=== PATIENT | male | born 1965 | race Caucasian/White ===

== ENCOUNTER 2021-01-21 06:19 | Outpatient (REF) | payer OTHER, SELFPAY ==
[2021-01-21 11:35] LABS: Appearance Urine CLEAR; Color Urine YELLOW; Glucose Urine UA NEG (NEG); Leukocyte Esterase Urine NEG (NEG); Nitrite Urine NEG (NEG); Urine Blood NEG (NEG); Urine Ketones NEG (NEG); Urine Protein NEG (NEG-TRACE)
[2021-01-21 12:04] LABS: Alanine Aminotransferase 17 U/L (0-40); Albumin Level 4.6 g/dL (3.5-5.0); Alkaline Phosphatase 86 U/L (39-117); Anion Gap 11 (12-20); Aspartate Amino Transferase 16 U/L (5-37); Blood Urea Nitrogen 14 mg/dL (9-16); Calcium 9.8 mg/dL (8.4-10.2); Carbon Dioxide 29 mmol/L (22-29); Chloride 105 mmol/L (96-108); Cholesterol 219 mg/dL; Estimated Glomerular Filt Rate > 60; Glucose Fasting 100 mg/dL (60-99); HDL Cholesterol 48 mg/dL; LDL Cholesterol Calculated 159 mg/dl; Potassium 4.6 mmol/L (3.3-5.1); Sodium 140 mmol/L (135-145); Total Protein 7.2 g/dL (6.5-8.0); Triglycerides 61 mg/dL
[2021-01-21 12:27] LABS: Prostate Specific Antigen Scr 0.74 ng/mL (<0.05-4.0); TSH reflex Free T4 1.43 uIU/mL (0.32-4.0)
== END 2021-01-21 06:20 | disposition home or self-care (01) ==
LOC: HO.HMGCLDS 06:19
PROVIDERS: PCP Nurse Practitioner Family; Visit Provider Nurse Practitioner Family
DX: Z00.00 Encounter for general adult medical examination without abnormal findings (principal); Z12.5 Encounter for screening for malignant neoplasm of prostate
CPT/HCPCS: 36415; 80053; 80061; 81003; 84153; 84443

== ENCOUNTER 2021-01-22 09:34 | Outpatient (REF) | payer OTHER, SELFPAY ==
--- NOTE | ~2021-01-22 | XR_ITS ---
EXAMINATION: XR SHOULDER, LEFT CLINICAL INFORMATION: Left shoulder pain. COMPARISON: None TECHNIQUE: Four views of the left shoulder. FINDINGS: The bony alignment is intact. The cortices are intact. Possible subtle radiolucency is noted within the proximal metaphysis of the left humerus with overlying intact cortex. There is no evidence of any endosteal scalloping or periosteal reaction seen. Overlying soft tissues intact. Mild osteoarthrosis of the left acromioclavicular joint. The glenohumeral alignment is intact. XR/XR shoulder LT min 2V IMPRESSION: 1. Possible subtle radiolucency within the proximal left humerus with intact overlying cortex. Alternative imaging modality including CT scan or MRI may be considered for further clarification. 2. Mild osteoarthrosis of the left acromioclavicular joint.
== END 2021-01-22 09:35 | disposition home or self-care (01) ==
LOC: HO.HMGCX 09:34
PROVIDERS: PCP Nurse Practitioner Family; Visit Provider Nurse Practitioner Family
DX: M25.512 Pain in left shoulder (principal); G89.29 Other chronic pain
CPT/HCPCS: 73030

== ENCOUNTER 2021-02-16 11:01 | Outpatient (REF) | payer OTHER, SELFPAY ==
--- NOTE | ~2021-02-16 | MR_ITS ---
EXAMINATION: MR SHOULDER WITHOUT AND WITH CONTRAST, LEFT CLINICAL INFORMATION: Left shoulder pain and weakness. Decreased range of motion. COMPARISON: Radiograph dated 01/22/2021 TECHNIQUE: MRI of the shoulder was performed before and after the intravenous administration of 5 mL Gadavist on a high-field scanner. FINDINGS: ROTATOR CUFF: Intact. No muscle atrophy or fatty infiltration. BICEPS: Normal. CORACOACROMIAL ARCH: The undersurface of the acromion is flat with no subacromial spur. Mild acromioclavicular osteoarthritis. LABRUM/CAPSULE: Normal. GLENOHUMERAL JOINT/MARROW: Small glenoid osteophytes. The articular cartilage appears well preserved. No fracture or malalignment. Bone marrow signal is normal. There is a paucity of trabecular bone in the proximal humeral metadiaphyseal region which likely corresponds to the suspected radiolucency on the prior radiograph. This variation in the trabecular bone is within the range of normal and produced a pseudolesion radiographically. MR/MR shoulder LT wo/w con IMPRESSION: 1. Mild acromioclavicular and minimal glenohumeral osteoarthritis. 2. No appreciable rotator cuff abnormalities. 3. Normal proximal humerus. No lesions. Radiographic abnormality corresponds to normal variation in the trabecular bone.
== END 2021-02-16 11:02 | disposition home or self-care (01) ==
LOC: HO.MRI 11:01
PROVIDERS: Visit Provider Nurse Practitioner Family
DX: M89.8X9 Other specified disorders of bone, unspecified site (principal); R93.6 Abnormal findings on diagnostic imaging of limbs
CPT/HCPCS: 73223; A9585

== ENCOUNTER 2021-07-20 10:03 | Outpatient (REF) | payer OTHER, SELFPAY ==
[2021-07-20 10:29] LABS: COVID-19 Test Negative (Negative); IDNOW Serial# 16C4AD1C
== END 2021-07-20 10:04 | disposition home or self-care (01) ==
LOC: HO.LAB 10:03
PROVIDERS: PCP Nurse Practitioner Family; Visit Provider Internal Medicine
DX: Z20.822 Contact with and (suspected) exposure to COVID-19 (principal)
CPT/HCPCS: 87635; C9803

== ENCOUNTER 2022-01-17 06:05 | Outpatient (REF) | payer OTHER, SELFPAY ==
[2022-01-17 11:49] LABS: Alanine Aminotransferase 18 U/L (0-40); Albumin Level 4.4 g/dL (3.5-5.0); Alkaline Phosphatase 83 U/L (39-117); Anion Gap 14 (12-20); Aspartate Amino Transferase 17 U/L (5-37); Bilirubin Total 0.6 mg/dL (0.0-1.0); Blood Urea Nitrogen 14 mg/dL (9-16); Calcium 9.4 mg/dL (8.4-10.2); Carbon Dioxide 27 mmol/L (22-29); Chloride 106 mmol/L (96-108); Cholesterol 169 mg/dL; Estimated Glomerular Filt Rate > 60; Glucose Fasting 99 mg/dL (60-99); HDL Cholesterol 47 mg/dL; LDL Cholesterol Calculated 110 mg/dl; Potassium 4.5 mmol/L (3.3-5.1); Sodium 142 mmol/L (135-145); Total Protein 6.9 g/dL (6.5-8.0); Triglycerides 60 mg/dL
== END 2022-01-17 06:06 | disposition home or self-care (01) ==
LOC: HO.HMGCLDS 06:05
PROVIDERS: PCP Nurse Practitioner Family; Visit Provider Nurse Practitioner Family
DX: E78.5 Hyperlipidemia, unspecified (principal)
CPT/HCPCS: 36415; 80053; 80061

== ENCOUNTER 2022-01-23 11:16 | Outpatient (REF) | payer OTHER, SELFPAY ==
[2022-01-23 13:56] LABS: MANUAL DIFF FLAG NO
[2022-01-23 14:04] LABS: Appearance Urine Clear; Color Urine Yellow; Glucose Urine UA Negative (Negative); Leukocyte Esterase Urine Negative (Negative); Nitrite Urine Negative (Negative); PH 6.5 (5.0-9.0); Urine Blood Negative (Negative); Urine Ketones Negative (Negative); Urine Protein Negative (Neg-Trace)
[2022-01-23 14:04] LABS: Basophils Absolute Auto 0.1 X10*3/uL (0.0-0.2); Basophils Percent Auto 0.7 % (0-2); Eosinophils Absolute Auto 0.1 X10*3/uL (0.0-0.4); Eosinophils Percent Auto 1.5 % (0-4); Hematocrit 43.2 % (42.0-52.0); Hemoglobin 14.3 g/dl (14.0-18.0); Imm Gran Abs Auto 0.02 X10*3/uL (0.00-0.03); Imm Gran Pct Auto 0.3 % (0.0-0.4); Lymphocytes Absolute Auto 1.8 X10*3/uL (1.2-4.9); Mean Corpuscular HGB Conc 33.1 g/dl (31.0-36.0); Mean Corpuscular Hemoglobin 29.4 pg (27.0-33.0); Mean Corpuscular Volume 88.7 fL (80.0-98.0); Mean Platelet Volume 9.1 fL (9.4-12.4); Monocytes Absolute Auto 0.4 X10*3/uL (0.1-1.2); Monocytes Percent Auto 5.6 % (2-11); Neutrophils Percent Auto 67.9 % (45-73); Platelet Count 320 X10*3/uL (160-400); Red Blood Count 4.87 X10*6/uL (4.60-5.80); Red Cell Distribution Width 12.4 % (11.0-16.0); White Blood Count 7.3 X10*3/uL (4.8-10.8)
[2022-01-23 14:34] LABS: Prostate Specific Antigen Scr 0.59 ng/mL (<0.05-4.0); TSH reflex Free T4 0.65 uIU/mL (0.32-4.0)
== END 2022-01-23 11:17 | disposition home or self-care (01) ==
LOC: HO.HMGCLDS 11:16
PROVIDERS: PCP Nurse Practitioner Family; Visit Provider Nurse Practitioner Family
DX: Z00.00 Encounter for general adult medical examination without abnormal findings (principal); Z12.5 Encounter for screening for malignant neoplasm of prostate
CPT/HCPCS: 36415; 81003; 84153; 84443; 85025

== ENCOUNTER → 2022-03-16 09:26 | Outpatient (BNVA) | payer OTHER, SELFPAY | PROVIDERS: PCP Nurse Practitioner Family; Referring Provider Nurse Practitioner Family; Visit Provider Physician Assistant | DX: Z01.818 Encounter for other preprocedural examination (principal) | CPT/HCPCS: 99202 ==

== ENCOUNTER 2022-05-02 10:00 | Outpatient (RCR) | payer OTHER, SELFPAY ==
--- NOTE | 2022-02-01 11:47 | MHC.PT.EP ---
[facility] [place] [facility] [place] [facility] [place] [facility] [address] [phone] F: [phone] F: [phone] F: [phone] F: [phone] Physical Therapy Plan of Care Date of Evaluation: Date of Surgery: n/a Diagnosis: L shoulder pain Assessment: Patient is a 56 year old R handed male who presents with s/s consistent with L shoulder pain. 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 Patient past medical history is unremarkable. Current impairments include pain, posture, ROM, strength, activity tolerance and functional mobility. Functional limitations include decreased ability to reach, lift, carry, push, pull. Patient is motivated with good rehab potential. Skilled PT will address impairments and functional limitations in order to achieve goals. Frequency and Duration: The patient will be seen 2x/week for 5 weeks Short Term Goals: I with HEP - 2 weeks Full pain free AROM - 3 weeks symmetrical scap position - 3 weeks Assisted Goals: SPADI 20/130 or better - 5 weeks Strength 4+/5 grossly - 5 weeks TTP absent, pain free ADLs - 5 weeks Treatment Plan: Modalities to reduce pain, spasms and effusion. Manual therapy to restore motion and function. Therapeutic exercise to improve strength and flexibility. Neuromuscular re-education for posture and balance. Therapeutic activities to return to functional activities of daily living. Electronically signed by: Eric Flores, PT Please sign and return to therapist. Thank you for your referral.
--- NOTE | 2022-06-16 08:26 | MHC.PT.DC ---
[facility] [place] Office [place] Office [address] [phone] F: [phone] F: [phone] F: [phone] F: [phone] Physical Therapy Discharge Report Diagnosis: L shoulder pain Date of Surgery: n/a Date of Evaluation: 02/01/22 Date of Discharge: 04/27/22 Treatments to Date: 10 Cancellations to Date: No Shows to Date: Discharge Status: Improved Function Independent with HEP Discharge Summary: 05/02/22: SPADI 12/130. AROM WNL and pain free. Still with slight scapular asymmetries. Strength 4+/5 grossly. TTP absent and pain free with aDLs. Updated HEP issued and patient is appropriate for d/c to HEP at this time. 04/18/22: Pt has been feeling better overall and is compliant with HEP. we will plan 1 more visit then d/c to HEP. 03/27/22: pt had minor setback lifting wood last week. no adverse reactions since. has been back to baseline the last few days. able to resume strengthening with good carryover and progressed weights. 03/15; Pt c/o pain and pinching with some exs, DC and modified program to pt nely. Pt felt relief with sustained inf glide with imporved pain free ROM. 03/08; Pt had reduced pinching after manual RX. He only c/o pain in L shoulder at end range shoulder flexion with slight impingement. Otherwise he has good form and no pain with strengthening exercises. 03/08; Pt had reduced pinching after mobs and STM. Electronically signed by: Eric Flores PT Please sign and return to therapist. Thank you for your referral.
== END 2022-06-16 08:27 | disposition home or self-care (01) ==
LOC: HO.PTCHIC 10:00
PROVIDERS: PCP Nurse Practitioner Family; Visit Provider Nurse Practitioner Family
DX: R93.6 Abnormal findings on diagnostic imaging of limbs (principal)
CPT/HCPCS: 97110; 97140; 97161; 97530

== ENCOUNTER → 2022-09-08 10:40 | Outpatient (REF) | payer OTHER, SELFPAY ==
--- NOTE | 2022-09-08 10:42 | CA_ITS ---
Transthoracic Echocardiogram Patient (Last, First, Middle): Herminio Lozano, Gender: Male Date of : 1965 Age: 57 Procedure Date: 09/08/2022 Procedure Type: Transthoracic Echocardiogram Location: OP Height: 170.18 cm Weight: 52.16 kg BSA: 1.60 m2 Heart Rate: 60 bpm BP: 110 / 70 mmHg Mortgage Banker: SB Referring MD: Roc Harper [facility] Inside H[employer]icultural Specialty Grower: John Mccormick MD Symptoms: R01.1 - Cardiac murmur, unspecified Study Quality: Good ECG Rhythm: Sinus Conclusions: - Normal study Findings Left Ventricle Normal left ventricular size, thickness, and systolic function. The visually estimated ejection fraction is between 65-70%. Diastolic function is normal for age. Peak GLS is -19.6%, within normal limits. Right Ventricle Normal right ventricular cavity size and systolic function. Atria Both atria are normal in size. There is no evidence of interatrial shunt. Aortic Valve Normal aortic valve structure and function. There is no aortic valve stenosis. There is no aortic valve regurgitation. Mitral Valve Normal mitral valve structure and function. There is trace mitral valve regurgitation. There is no mitral valve stenosis. Pulmonic Valve The pulmonic valve is likely normal. Tricuspid Valve Normal tricuspid valve structure. There is trace tricuspid valve regurgitation. The right ventricular systolic pressure is normal. The right ventricular systolic pressure is 14 mmHg. Normal right atrial pressure. There is no evidence of pulmonary hypertension. Great Vessels All visible segments of the aorta are normal in size. The pulmonary artery was not well visualized. Venous The inferior vena cava is normal in size and collapses greater than 50% with inspiration. Pericardium/Pleural There is no evidence of pericardial effusion. Prior Study Comparison No prior study available for comparison. Measurements 2D Linear Measurements IVSd: 0.52 0.6-0.9/0.6-1.0 cm LVIDd: 4.44 3.9-5.3/4.2-5.9 cm LVIDd Index: 2.78 2.4-3.2/2.2-3.1 cm/m2 LVIDs: 3.26 2.0-3.6 cm LVPWd: 0.47 0.7-1.1 cm LA Diam: 2.90 2.7-3.8/3.0-4.0 cm LAIDs Index: 1.81 1.5-2.3 cm/m2 LV Mass: 74.93 67-162/88-224 g LV Mass Index: 46.83 43-95/49-115 g/m2 LVOT Diam: 2.10 3.0+(-)1.3 cm 2D Systolic Function EF 4C: 64.30 >55% EF 2C: 70.30 >55% EF BiP: 67.70 >55% Mitral Valve MV Pk E: 0.88 MV PK A: 0.41 MV Decel Time: 276.00 E/A: 2.20 E'Lateral: 14.70 E'Medial: 8.81 E/E' Med: 10.00 E/E' Lat: 6.00 PHT: 81.00 MVA PHT: 2.72 Decel [place]: 3.19 Aortic Valve AoV Pk Jordy: 1.52 AoV Mn Jordy: 0.97 AoV VTI: 0.32 AoV Pk Grad: 9.00 Aov Mn Grad: 5.00 ARIEL Cont.VTI: 2.31 LVOT LVOT Pk Jordy: 1.17 LVOT Mn Jordy: 0.71 LVOT VTI: 0.21 LVOT Pk Grad: 5.00 LVOT Mn Grad: 3.00 LVOT Diam: 2.10 LVOT Area: 3.46 Diastolic Function MV Pk E: 0.88 MV Pk A: 0.41 E/A: 2.20 E'Medial: 8.81 E/E' Med: 10.00 E' Laterial: 14.70 E/E' Lat: 6.00 Right Ventricle TAPSE (mm): 20.30 TVS' Jordy: 16.00 Tricuspid Valve TR Pk Jordy: 1.67 TR Pk Grad: 11.00 RA Press: 3.00 RVSP: 14.00 Great Vessels Aorta Sinus of Valsalva: 2.50 2.0-3.5 cm Ao Asc: 2.90 2.1-3.4 cm Pulmonary Veins Pulm Vein S/D 0.90 Pulmonary Valve PV Pk Jordy: 1.31 PV Min Jordy: 0.87 Peak PV Grad: 7.00 PV Mn Grad: 4.00 Updated in Other Vendor System with Status of Final John Mccormick MD electronically signed on 09/09/2022 10:46:18 AM with status of Final
== END ==
LOC: HO.CARD 10:40
PROVIDERS: PCP Nurse Practitioner Family; Visit Provider Nurse Practitioner Family
DX: R01.1 Cardiac murmur, unspecified (principal)
CPT/HCPCS: 93306; 93356

== ENCOUNTER → 2024-05-14 08:57 | Outpatient (BNVA) | payer OTHER, SELFPAY | PROVIDERS: PCP Nurse Practitioner Family; Visit Provider Nurse Practitioner Family | DX: Z00.00 Encounter for general adult medical examination without abnormal findings (principal) | CPT/HCPCS: 96127; 99396 ==

== ENCOUNTER 2024-05-28 09:43 | Outpatient (REF) | payer OTHER, SELFPAY ==
--- OUTSIDE RECORDS SUMMARY | 2024-05-28 10:04 | XMS_ITS | Clinical Summary ---
Author Organization [facility] Address [address] [place] [address] Care Team Providers Care Guinea Pig Breeder Name Role Phone Olga Don MD Primary Care Provider [phone] Allergies No known active allergies Medications Medication Sig Dispensed Refills Start Date End Date Status sulindac (CLINORIL) 150 MG tablet Take 1 Tab by mouth 2 times daily as needed for Pain. 60 Tab 0 07/03/2017 Active Active Problems Problem Noted Date Chronic left shoulder pain 06/06/2016 Immunizations Name Administration Dates Next Due Qwigguhzb-Y-Ncurg-Positive + 12/29/2013 Nbcybca-Qzurv-Bspcwryr + 12/29/2013 Kkmxz-Jwkcu-Qngcnjxf + 12/29/2013 Nlknqeb-Ucycf-Yfvjehjw + 12/29/2013 Varicella Titre-Positive + 12/29/2013 Family History Medical History Relation Name Comments CA Breast Aunt 2 maternal, older (around 65 or so) CA Breast Aunt 3 maternal, older (around 65 or so) CA Lung Uncle 2 smoker CA Colon Negative Hx CA Prostate Negative Hx Relation Name Status Comments Aunt 1 Aunt 2 Aunt 3 Uncle 1 Uncle 2 Social History Tobacco Use Types Packs/Day Years Used Date Smoking Tobacco: Never Smokeless Tobacco: Never Tobacco Cessation:Counseling Given: No Alcohol Use Standard Drinks/Week Comments No 0 (1 standard drink = 0.6 oz pur e alcohol) rarely Sex Assigned at Date Recorded Not on file Last Filed Vital Signs Vital Sign Reading Time Taken Comments Blood Pressure 122/64 07/03/2017 2:46 PM EDT Pulse 72 07/03/2017 2:46 PM EDT Temperature 36.8 ??C (98.3 ??F) 07/03/2017 2:46 PM ED T Respiratory Rate 16 07/03/2017 2:46 PM EDT Oxygen Saturation - - Inhaled Oxygen Concentration - - Weight 52.2 kg (115 lb) 07/03/2017 2:46 PM EDT Height 165.1 cm (5' 5 ) 07/03/2017 2:46 PM EDT Body Mass Index 19.14 07/03/2017 2:46 PM EDT Plan of Treatment Health Maintenance Due Date Last Done Comments Covid-19 Vaccine (#1) 1965 SHINGLES VACCINE (1 of 2) 2013 BASELINE HEALTH EXAM 40-64 06/06/2018 06/06/2016 CHOLESTEROL SCREENING 12/29/2018 12/29/2013 (External Completion) INFLUENZA (#1) 2023 07/03/2017 (Refused), 06/06/2016 (Refused) COLON CANCER SCREENING 03/30/2024 4, 03/30/2014 (External Completion) DTAP/TDAP/TD (2 - Td or Tdap) 06/06/2026 06/06/2016 (Refused) PNEUMOCOCCAL VACCINE FOR HIGH RISK PATIENTS (#1) 2028 HEPATITIS C SCREENING Addressed 12/29/2013 (External Completion) Overridden with the intention of not completing the topic Care Teams Guinea Pig Breeder Relationship Specialty Start Date End Date Olga Don MD [address] [place] [id number] PCP - General Internal Medicine 10/18/20
[2024-05-28 13:11] LABS: Appearance Urine Clear; Color Urine Yellow; Glucose Urine UA Negative (Negative); Leukocyte Esterase Urine Negative (Negative); Nitrite Urine Negative (Negative); Specific Gravity - Urine >= 1.030 (1.005-1.025); Urine Blood Negative (Negative); Urine Ketones Negative (Negative); Urine Protein Negative (Neg-Trace)
[2024-05-28 13:19] LABS: MANUAL DIFF FLAG NO
[2024-05-28 13:35] LABS: Basophils Percent Auto 0.6 % (0-2); Eosinophils Absolute Auto 0.2 X10*3/uL (0.0-0.4); Eosinophils Percent Auto 3.6 % (0-4); Hematocrit 43.7 % (42.0-52.0); Hemoglobin 14.4 g/dl (14.0-18.0); Imm Gran Abs Auto 0.02 X10*3/uL (0.00-0.03); Imm Gran Pct Auto 0.4 % (0.0-0.4); Lymphocytes Percent Auto 38.3 % (20-40); Mean Corpuscular Hemoglobin 29.6 pg (27.0-33.0); Mean Corpuscular Volume 89.7 fL (80.0-98.0); Mean Platelet Volume 9.2 fL (9.4-12.4); Monocytes Absolute Auto 0.4 X10*3/uL (0.1-1.2); Monocytes Percent Auto 7.3 % (2-11); Neutrophils Absolute Auto 2.6 x10*3/uL (2.0-8.3); Neutrophils Percent Auto 49.8 % (45-73); Platelet Count 299 X10*3/uL (160-400); Red Blood Count 4.87 X10*6/uL (4.60-5.80); Red Cell Distribution Width 12.5 % (11.0-16.0); White Blood Count 5.2 X10*3/uL (4.8-10.8)
[2024-05-28 14:10] LABS: Alanine Aminotransferase 42 U/L (0-40); Albumin Level 4.2 g/dL (3.5-5.0); Alkaline Phosphatase 88 U/L (39-117); Anion Gap 10 (12-20); Aspartate Amino Transferase 33 U/L (5-37); Bilirubin Total 0.8 mg/dL (0.0-1.0); Blood Urea Nitrogen 16 mg/dL (9-16); Calcium 9.5 mg/dL (8.4-10.2); Carbon Dioxide 27 mmol/L (22-29); Chloride 108 mmol/L (96-108); Cholesterol 238 mg/dL (<200); Estimated Glomerular Filt Rate > 60; Glucose Fasting 92 mg/dL (60-99); HDL Cholesterol 47 mg/dL (>40); LDL Cholesterol Calculated 172 mg/dL (<100); Potassium 4.2 mmol/L (3.3-5.1); Sodium 141 mmol/L (135-145); TSH reflex Free T4 1.01 uIU/mL (0.32-4.0); Total Protein 7.2 g/dL (6.5-8.0); Triglycerides 96 mg/dL (<150)
[2024-05-28 14:13] LABS: Prostate Specific Antigen Scr 0.92 ng/mL (<0.05-4.0)
== END 2024-05-28 09:44 | disposition home or self-care (01) ==
LOC: HO.HMGCLDS 09:43
PROVIDERS: PCP Nurse Practitioner Family; Visit Provider Nurse Practitioner Family
DX: Z00.00 Encounter for general adult medical examination without abnormal findings (principal); Z12.5 Encounter for screening for malignant neoplasm of prostate
CPT/HCPCS: 36415; 80053; 80061; 81003; 84153; 84443; 85025

== ENCOUNTER 2024-06-25 09:39 | Outpatient (REF) | payer OTHER, SELFPAY ==
--- NOTE | ~2024-06-25 | US_ITS ---
EXAMINATION: US ABDOMEN HISTORY: R74.8 - Abnormal levels of other serum enzymes TECHNIQUE: Real-time grayscale ultrasound imaging of the abdomen was performed and images were reviewed. COMPARISON: There are no prior studies for comparison. FINDINGS: Liver: The right lobe of the liver measures 13.1 cm in size. The left lobe of the liver measures 8.2 cm in size. The liver demonstrates normal homogeneous echotexture. There is a 1.4 x 0.6 x 1.4 cm cyst in the right lobe. No intrahepatic biliary ductal dilatation is identified. There is normal hepatopedal flow in the portal vein. Gallbladder and biliary tree: The gallbladder is unremarkable, without evidence of calculi, wall thickening, or pericholecystic fluid. There is no sonographic Martines sign. The common bile duct is normal in caliber measuring 4 mm. Kidneys: The right kidney measures 9.8 cm in length and is unremarkable. The left kidney measures 10.0 cm in length and demonstrates a 6 x 4 x 5 mm upper pole cyst and a 1.7 x 1.8 x 1.5 cm lower pole cyst demonstrating calcifications. There is no hydronephrosis. Pancreas: The pancreatic head, neck, and body are unremarkable. The pancreatic tail is obscured by bowel gas. Spleen: The spleen is normal in size and contour, measuring 9.0 cm in length. Abdominal aorta and inferior vena cava: The visualized portions of the abdominal aorta and inferior vena cava are normal in caliber. There is no free fluid in the abdomen. US/US abdomen complete IMPRESSION: 1.7 x 1.8 x 1.5 cm left renal cyst demonstrating calcifications. Follow-up is recommended. Additional hepatic and left renal cysts as described. Electronically signed by: Emory Donaldson MD 06/25/2024 11:03 AM EDT
== END 2024-06-25 09:40 | disposition home or self-care (01) ==
LOC: HO.US 09:39
PROVIDERS: PCP Nurse Practitioner Family; Visit Provider Nurse Practitioner Family
DX: R74.8 Abnormal levels of other serum enzymes (principal)
CPT/HCPCS: 76700

== ENCOUNTER → 2024-06-25 09:40 | Outpatient (BNV) | payer OTHER, SELFPAY | PROVIDERS: PCP Nurse Practitioner Family; Visit Provider Radiology Diagnostic Radiology | DX: R74.8 Abnormal levels of other serum enzymes (principal); N28.1 Cyst of kidney, acquired | CPT/HCPCS: 76700 ==

== ENCOUNTER 2024-08-21 07:50 | Outpatient (REF) | payer OTHER, SELFPAY ==
[2024-08-21 17:03] LABS: Urine Cytology See Pathology rpt
== END 2024-08-21 07:51 | disposition home or self-care (01) ==
LOC: HO.LAB 07:50
PROVIDERS: PCP Nurse Practitioner Family; Visit Provider Nurse Practitioner Family
DX: N28.1 Cyst of kidney, acquired (principal); R31.29 Other microscopic hematuria
CPT/HCPCS: 81003; 88112; 99202

== ENCOUNTER 2024-08-21 07:50 | Outpatient (AMB) | payer OTHER, SELFPAY ==
--- NOTE | 2024-08-21 07:50 | A.OFFVIS_ITS ---
Intake Visit Reasons: Renal cyst Intake Note: Pt presents to the office today for renal cyst. Urology Meds:none Blood thinners:none Allergies No Known Allergies Allergy (Verified 08/21/24 08:21) Medication List - Last Reconciled 08/21/24 by EMILY Wu-EAMON bisacodyl (Dulcolax (bisacodyl)) 10 mg (2 x 5 mg) PO ONCE 1 day polyethylene glycol 3350 (Miralax) 238 grams PO ONCE 1 day HPI Comments Details: Herminio is a very pleasant 59-year-old male patient of Dr. Morris. He presents to the office today as a new patient for left renal cysts. In discussion with the patient today he reports having had a recent abdominal ultrasound due to abnormal blood work with his PCP at which time abnormality was noted to the left kidney and recommendations were made for urology referral for further assessment evaluation. Renal imaging results were reviewed with the patient today 07/01 1.7 x 1.8 x 1.5 cm left renal cyst demonstrating calcifications. Follow-up is recommended. Bilateral kidneys with no calculi or hydronephrosis. When asked he denies any bothersome urinary issues. He denies urinary urgency, urinary frequency, incontinence, nocturia, hematuria, dysuria, foul smelling urine, changes to urinary stream, flank pain, fever, and or chills. He is happy with his current voiding parameters. He does report intermittent episodes of left-sided upper to mid abdominal discomfort. No CVA tenderness noted bilaterally on exam today. We discussed obtaining MRI renal mass protocol for further assessment evaluation. In office urinalysis results reviewed with the patient today. Microscopic hematuria noted otherwise within normal limits. When asked he denies any known workplace chemical exposure and or nicotine dependence. In review of patient's chart it appears PSA 06/03 0.9. We discussed potential causes of renal cysts as well as further interventions and risks and benefits of these interventions. We also discussed potential causes of microscopic hematuria. All questions were answered. He otherwise offers no other issues or concerns at this time. Plan I will obtain a MRI renal mass protocol to further evaluate the renal cyst identified on ultrasound. Advanced imaging will provide additional details necessary to determine the cyst's characteristics. If confirmatory imaging march pports a benign renal cyst we discussed surveillance monitoring. I discussed potential risks and necessary ongoing surveillance which could include intervention only if indicated by progression or new symptoms. Patient was informed and verbally consented to the use of an ambient scribe for clinic note documentation during this visit. Discussion Notes During the visit, I reviewed with the patient the ultrasound findings indicating a renal cyst on the left kidney, noting that while typically benign, further imaging is required for confirmation. I explained the benefits of a CT scan or MRI to provide a more definitive assessment. I detailed the plan for obtaining insurance authorization and scheduling the imaging procedure. Additionally, I informed the patient of red flag symptoms that would warrant immediate attention, such as hematuria or changes in urinary habits. The patient was provided with reassurance regarding the benign nature of most renal cysts and the approach for monitoring their evolution. Consent was obtained for the proposed diagnostic approach with a clear understanding of the risks, benefits, and alternatives discussed. PFSH Surgical History Hx of colonoscopy Family History Father Hypertension Mother No problems noted. 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 Cognitive needs: No Hearing needs: No Vision needs: No Review of Systems Const All systems reviewed & are unremarkable except as noted in HPI and below Physical Exam Const General: cooperative, comfortable, no acute distress, well developed, alert and awake Orientation/consciousness: patient oriented x3 HEENT Head: Yes normal to inspection, Yes normocephalic and Yes atraumatic Ears: hearing grossly normal bilaterally Eyes General: appearance normal, both eyes and all related structures Neck Neck: Yes normal visual inspection and Yes trachea midline Chest Chest palpation & inspection: normal inspection of the chest Resp Effort & Inspection: normal respiratory effort and able to speak in complete sentences Cardio Rate: regular rate GI Inspection: Yes normal to inspection General: Yes no CVA tenderness Back/Spine/Pelvis Back: no CVA tenderness Skin General skin exam: no rashes or lesions noted Neuro General: patient oriented x3 Extrem General: Yes normal to inspection Psych Appearance: grossly normal and well kempt Mental Status: mental status grossly normal Speech and movement: Normal speech and movement present and Clear speech present Affect: normal affect Attitude: cooperative Thought process: Normal thought process present Thought content: Normal thought content present Insight: Fair insight present (Psych) Judgement: Fair judgement present (Psych) Results AMB Urinalysis, Automated UA Leukoctes 0 Sarahi/uL Last Edit by Lyudmila Tavera CMA on 08/21/24 07:57 UA Nitrite Negative Last Edit by Lyudmila Tavera CMA on 08/21/24 07:57 UA Urobilinogen 0.2 mg/dL Last Edit by Lyudmila Tavear CMA on 08/21/24 07:57 UA Protein 0 mg/dL Last Edit by Lyudmila Tavera CMA on 08/21/24 07:57 UA pH 6.0 Last Edit by Lyudmila Tavera CMA on 08/21/24 07:57 UA Blood 10 Kiel/uL Last Edit by Lyudmila Tavera CMA on 08/21/24 07:57 UA Specific Fabius 1.020 Last Edit by Lyudmila Tavera CMA on 08/21/24 07:57 UA Ketone Negative Last Edit by Lyudmila Tavera CMA on 08/21/24 07:57 UA Bilirubin 0 mg/dL Last Edit by Lyudmila Tavera CMA on 08/21/24 07:57 UA Glucose 0 mg/dL Last Edit by Lyudmila Tavera CMA on 08/21/24 07:57 Results Reviewed Results Reviewed: Laboratory Last Values Urine pH (Auto) 6.0 08/21/24 07:52 Specific Fabius (Auto) 1.020 08/21/24 07:52 Urine Protein (Auto) 0 mg/dL 08/21/24 07:52 Glucose (UA)(Auto) 0 mg/dL 08/21/24 07:52 Urine Ketones (Auto) Negative 08/21/24 07:52 Urine Blood (Auto) 10 Kiel/uL 08/21/24 07:52 Urine Nitrite (Auto) Negative 08/21/24 07:52 Urine Bilirubin (Auto) 0 mg/dL 08/21/24 07:52 Urine Urobilinogen (Auto) 0.2 mg/dL 08/21/24 07:52 Leukocyte Esterase (Auto) 0 Sarahi/uL 08/21/24 07:52 Date of Service: 06/25/24 Procedure(s): US abdomen complete FINDINGS: Liver: The right lobe of the liver measures 13.1 cm in size. The left lobe of the liver measures 8.2 cm in size. The liver demonstrates normal homogeneous echotexture. There is a 1.4 x 0.6 x 1.4 cm cyst in the right lobe. No intrahepatic biliary ductal dilatation is identified. There is normal hepatopedal flow in the portal vein. Gallbladder and biliary tree: The gallbladder is unremarkable, without evidence of calculi, wall thickening, or pericholecystic fluid. There is no sonographic Martines sign. The common bile duct is normal in caliber measuring 4 mm. Kidneys: The right kidney measures 9.8 cm in length and is unremarkable. The left kidney measures 10.0 cm in length and demonstrates a 6 x 4 x 5 mm upper pole cyst and a 1.7 x 1.8 x 1.5 cm lower pole cyst demonstrating calcifications. There is no hydronephrosis. Pancreas: The pancreatic head, neck, and body are unremarkable. The pancreatic tail is obscured by bowel gas. Spleen: The spleen is normal in size and contour, measuring 9.0 cm in length. Abdominal aorta and inferior vena cava: The visualized portions of the abdominal aorta and inferior vena cava are normal in caliber. There is no free fluid in the abdomen. IMPRESSION: 1.7 x 1.8 x 1.5 cm left renal cyst demonstrating calcifications. Follow-up is recommended. Additional hepatic and left renal cysts as described. Assessment & Plan Assessment & Plan (1) Renal cyst: Code(s): N28.1 - Cyst of kidney, acquired Category: Medical (2) Microscopic hematuria: Code(s): R31.29 - Other microscopic hematuria Category: Medical Plan In office urinalysis results reviewed with the patient today; as noted above; Wi ll send for urine cytology. Recent abdominal ultrasound results reviewed with the patient today; as noted above. Patient currently denies any bothersome urinary issues or concerns. He reports be happy with current voiding parameters. We discussed potential causes of renal cysts as well as microscopic hematuria as well as further interventions and risks and benefits of these interventions. Will obtain MRI renal mass protocol for further assessment evaluation. Follow-up in 1-3 months with imaging to be completed prior; or sooner with any issues, concerns, and or questions. Orders: Orders AMB Urinalysis Automated Today Z13.9 - Encounter for screening, unspecified MR abdomen wo/w con Today N28.1 - Cyst of kidney, acquired Urine Cytology Today N28.1 - Cyst of kidney, acquired, R31.29 - Other microscopic hematuria Patient Instructions: The patient had an opportunity to ask questions regarding the treatment plan. All questions were answered. Physical exam, labs, and imaging were discussed and reviewed in detail. As well as risks, benefits, and discussion of treatment choices. No major barriers to understanding were identified. The patient expressed understanding and agreement with the above treatment plan. The patient was made aware they should contact our office by phone for worsening of their current condition, the appearance of new symptoms, or with any questions or concerns. Compliance is encouraged with any medications and follow up testing that is ordered. It is a privilege to be allowed the opportunity to participate in? your urological care.? Again, if you have any questions or concerns If you have any questions or concerns please do not hesitate to contact me. The office is [phone]. This note is constructed using voice recognition software. While every effort has been made to ensure accuracy braid folder errors may have been included. Yours sincerely, CINDY Wu Coding Level of Care Code New Pt Level 3 (40045) Diagnoses Renal cyst N28.1 Microscopic hematuria R31.29
== END 2024-08-21 08:20 | disposition home or self-care (01) ==
LOC: HO.HUSH 07:50
PROVIDERS: PCP Nurse Practitioner Family; Visit Provider Nurse Practitioner Family
DX: N28.1 Cyst of kidney, acquired (principal); R31.29 Other microscopic hematuria; Z13.9 Encounter for screening, unspecified
CPT/HCPCS: 99203

== ENCOUNTER 2024-09-10 09:57 | Outpatient (AMB) | payer OTHER, SELFPAY ==
[2024-09-10 10:00] VITALS: BP 127/61; PULSE 51; BMI 17.8
--- NOTE | 2024-09-10 10:00 | MHC.OFFVIS ---
Vital Signs 09/10/24 10:00 Height 5 ft 6 in Weight 110 lb 3.698 oz BMI 17.8 BP 127/61 Blood Pressure Location Lt brachial Position Sitting Pulse 51 Intake Visit Reasons: liver disease/Rehana pt Intake Note: Herminio presents in the office as a follow up for Rehana patient. CC: He seen Rehana as a consult and never had his Colonoscopy - he states he has no GI concerns at this time. 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 Reports never got an appt in 2021 to get the colo booked. Pt otherwise is asymptomatic no abd pain, N,V,D. No rectal bleeding. No fam hx of colon ca. Non smoker. No etOH use. Pt also referred for elevated LFTs. Was noted to have mild elevation LFTs and US showing hepatic cyst. Pt also with HLD but not on a statin yet. Reports waiting for another set of labs. PFSH Surgical History Hx of colonoscopy Family History Father Hypertension Mother No problems noted. 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 Cognitive needs: No Hearing needs: No Vision needs: No Review of Systems Const All systems reviewed & are unremarkable except as noted in HPI and below Physical Exam Vital Signs: Last Vital Signs Pulse 51 09/10/24 10:00 BP 127/61 09/10/24 10:00 BMI result Body Mass Index 17.8 No apparent distress Nonicteric Abdomen soft, nondistended Alert and oriented x3, normal gait Assessment & Plan Assessment & Plan (1) Hepatic cyst: Code(s): K76.89 - Other specified diseases of liver Category: Medical (2) Elevated liver enzymes: Code(s): R74.8 - Abnormal levels of other serum enzymes Category: Medical (3) Screening for colon cancer: Code(s): Z12.11 - Encounter for screening for malignant neoplasm of colon Category: Medical Plan 1. Elevated LFTs Likely 2/2 metabolic factors vs transient. Agree with rechecking labs. If lipids persistently high would recommend mod intensity statin. Doubt liver cyst is contributing to lfts as appears benign on US, but will get dedicated liver protocol MRI. Plan: - Recheck LFTs - HLD tx with mod intensity statin - MRI abd with and without contrast 2. CRC screening Average risk. Prefers colo. Instructions reviewed and PEG prep sent to pharmacy. Plan: - Book elective colo - PEG prep instructions reviewed and handout provided Follow up contingent on above Orders: Orders MR abdomen wo/w con Today K76.89 - Other specified diseases of liver Medications: New atorvastatin 20 mg PO BEDTIME 90 days 90 tabs 0RF peg 3350-electrolytes 236-22.74-6.74 -5.86 gram (Golytely) as per split prep instructions, until fecal effluent is clear 240 mL PO Q10M 4,000 mL 0RF colonoscopy Coding Level of Care Code New Pt Level 4 (98027) Diagnoses Hepatic cyst K76.89 Elevated liver enzymes R74.8 Screening for colon cancer Z12.11
== END 2024-09-10 10:48 | disposition home or self-care (01) ==
LOC: HO.HGI 09:57
PROVIDERS: PCP Nurse Practitioner Family; Visit Provider Internal Medicine
DX: Z01.818 Encounter for other preprocedural examination (principal); Z12.11 Encounter for screening for malignant neoplasm of colon; K76.89 Other specified diseases of liver; R74.01 Elevation of levels of liver transaminase levels
CPT/HCPCS: 99203

== ENCOUNTER → 2024-09-10 09:57 | Outpatient (BNVA) | payer OTHER, SELFPAY | PROVIDERS: PCP Nurse Practitioner Family; Visit Provider Internal Medicine | DX: K76.89 Other specified diseases of liver (principal); R74.8 Abnormal levels of other serum enzymes | CPT/HCPCS: 99202 ==

== ENCOUNTER 2024-09-12 08:57 | Outpatient (REF) | payer OTHER, SELFPAY ==
--- OUTSIDE RECORDS SUMMARY | 2024-09-12 09:16 | XMS_ITS | Encounter Summary ---
Author Organization [facility] Address [address] [place] [address] Care Team Providers Care Certified Professional Ergonomist Name Role Phone Denice Buchanan MD Primary Care Provider Olga Delgado MD Primary Care Provider [phone] Encounter Details Date Type Department Care Team Description 06/14/2016 Transfer Records Medical Records [address] [place], [place] [id number] Abstract, Provider Social History Tobacco Use Types Packs/Day Years Used Date Smoking Tobacco: Never Alcohol Use Standard Drinks/Week Comments No 0 (1 standard drink = 0.6 oz pur e alcohol) rarely Sex Assigned at Date Recorded Not on file documented as of this encounter Plan of Treatment Not on file documented as of this encounter Visit Diagnoses Not on filedocumented in this encounter Care Teams Certified Professional Ergonomist Relationship Specialty Start Date End Date Denice Buchanan MD PCP - General Internal Medicine 06/06/16 10/17/20 Olga Don MD [address] [place] [id number] PCP - General Internal Medicine 10/18/20 documented as of this encounter
[2024-09-12 10:20] LABS: MANUAL DIFF FLAG NO
[2024-09-12 10:32] LABS: Basophils Percent Auto 0.6 % (0-2); Eosinophils Absolute Auto 0.2 X10*3/uL (0.0-0.4); Eosinophils Percent Auto 3.1 % (0-4); Hematocrit 42.3 % (42.0-52.0); Imm Gran Abs Auto 0.01 X10*3/uL (0.00-0.03); Imm Gran Pct Auto 0.2 % (0.0-0.4); Lymphocytes Absolute Auto 0.9 X10*3/uL (1.2-4.9); Lymphocytes Percent Auto 17.8 % (20-40); Mean Corpuscular HGB Conc 33.1 g/dl (31.0-36.0); Mean Corpuscular Hemoglobin 29.7 pg (27.0-33.0); Mean Corpuscular Volume 89.6 fL (80.0-98.0); Monocytes Absolute Auto 0.5 X10*3/uL (0.1-1.2); Monocytes Percent Auto 10.1 % (2-11); Neutrophils Absolute Auto 3.3 x10*3/uL (2.0-8.3); Neutrophils Percent Auto 68.2 % (45-73); Platelet Count 267 X10*3/uL (160-400); Red Blood Count 4.72 X10*6/uL (4.60-5.80); Red Cell Distribution Width 12.7 % (11.0-16.0); White Blood Count 4.8 X10*3/uL (4.8-10.8)
[2024-09-12 11:01] LABS: HBS Num1 1.51 mIU/mL (0-7.99); HBc Num1 0.18 S/CO (0.00-0.79); HBsAGNum1 0.53 S/CO (0.00-0.99); Hepatitis A Antibody IgM 0.33 Index (0-0.79); Hepatitis B Core Antibody Nonreactive (Nonreactive); Hepatitis B Surface Antigen Negative (Negative); ~HepC Num1 0.14 S/CO (0.00-0.79); ~Hepatitis A Antibody IgM Nonreactive (Nonreactive); ~Hepatitis B Surface Antibody NONREACTIVE (Nonreactive); ~Hepatitis C Antibody Nonreactive (Nonreactive)
[2024-09-12 11:16] LABS: Alanine Aminotransferase 24 U/L (0-40); Albumin Level 4.5 g/dL (3.5-5.0); Anion Gap 9 (12-20); Aspartate Amino Transferase 25 U/L (5-37); Blood Urea Nitrogen 13 mg/dL (9-16); Calcium 9.4 mg/dL (8.4-10.2); Carbon Dioxide 29 mmol/L (22-29); Chloride 107 mmol/L (96-108); Cholesterol 208 mg/dL (<200); Estimated Glomerular Filt Rate > 60; Glucose Fasting 92 mg/dL (60-99); HDL Cholesterol 45 mg/dL (>40); LDL Cholesterol Calculated 146 mg/dL (<100); Potassium 4.2 mmol/L (3.3-5.1); Sodium 141 mmol/L (135-145); Total Protein 6.8 g/dL (6.5-8.0); Triglycerides 89 mg/dL (<150)
[2024-09-12 12:02] LABS: Alkaline Phosphatase 83 U/L (39-117)
== END 2024-09-12 08:58 | disposition home or self-care (01) ==
LOC: HO.HMGCLDS 08:57
PROVIDERS: PCP Nurse Practitioner Family; Visit Provider Nurse Practitioner Family
DX: E78.5 Hyperlipidemia, unspecified (principal); R74.8 Abnormal levels of other serum enzymes
CPT/HCPCS: 36415; 80053; 80061; 85025; 86704; 86706; 86709; 86803; 87340

== ENCOUNTER → 2024-11-19 15:55 | Outpatient (BNV) | payer OTHER, SELFPAY | PROVIDERS: PCP Nurse Practitioner Family; Visit Provider Radiology Diagnostic Radiology | DX: K76.89 Other specified diseases of liver (principal) | CPT/HCPCS: 74183 ==

== ENCOUNTER 2024-11-19 15:56 | Outpatient (REF) | payer OTHER, SELFPAY ==
--- NOTE | ~2024-11-19 | MR_ITS ---
EXAMINATION: MR ABDOMEN WITHOUT AND WITH CONTRAST CLINICAL INFORMATION: Other specified listhesis. K76.89. COMPARISON: Correlated to ultrasound dated June 25, 2024. TECHNIQUE: MR abdomen was performed without and with use of 5.0 mL intravenous gadolinium contrast. Postcontrast images are performed in multiphase dynamic sequences. Imaging was performed in 3 planes. No reported immediate complications. FINDINGS: Limited by patient's breathing/motion artifact. LUNG BASES: No enhancing lesion. LIVER, GALLBLADDER, AND BILIARY TREE: Liver measures 15 cm. There are multiple, less than 1 cm, well-defined, lobulated, hypointense T1 and hyperintense T2 nonenhancing no restricted diffusion lesions throughout the hepatic parenchyma, the largest in the anterior right hepatic lobe. The main portal veins, hepatic veins and intrahepatic portion of the IVC are patent. Gallbladder is contracted. No pericholecystic fluid collection or gallbladder wall thickening. No gross intraluminal signal abnormality. The common bile duct measures 5 mm. No intrahepatic biliary ductal dilatation. PANCREAS: No focal lesion. No peripancreatic fluid collection. No main pancreatic ductal dilatation. SPLEEN: 10 cm. No focal lesion. ADRENAL GLANDS: No nodular lesions. KIDNEYS AND URETERS: Right kidney: 5 mm, nonenhancing, fluid signal characteristic lesion centered in the corticomedullary junction upper pole midportion. No enhancing mass. Normal enhancement pattern throughout the renal parenchyma. No hydronephrosis. Left kidney: There is a 12 mm, ovoid shaped, nonenhancing, fluid signal characteristic lesion with a focal intrinsic hyperintense T1 signal centered at the corticomedullary junction lower pole. There is a 5 mm, well-defined, round and nonenhancing fluid signal characteristic lesion at the corticomedullary junction of the lower pole. Normal enhancement pattern throughout the renal parenchyma. No hydronephrosis. GASTROINTESTINAL TRACT: Abundant food contents in a prominent stomach likely recent meal. Gas and fluid within the small intestine. No intestinal dilatation. No ascites.. ABDOMINAL WALL: No gross umbilical hernia. LYMPH NODES: No retroperitoneal or mesenteric lymphadenopathy. VASCULAR: No aneurysm or dissection, abdominal aorta. OSSEOUS STRUCTURES: Mild multilevel thoracic and lumbar spondylosis. There is a cylindrical shaped CSF signal characteristic abnormality throughout the thoracic spinal cord extending from T9 to T12 L1. Questionable 1 mm hyperintense T2 signal within the conus medullaris. The conus medullaris ends at superior endplate of L1. MR/MR abdomen wo/w con IMPRESSION: Multiple hepatic cysts. Bosniak type I cyst, right kidney. Bosniak type II cyst, left kidney. Recommend follow-up. 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 Recommend dedicated IV contrast enhanced MRI of the entire spine Electronically signed by: Dre Mayen MD 11/20/2024 07:41 AM EDT
== END 2024-11-19 15:57 | disposition home or self-care (01) ==
LOC: HO.MRI 15:56
PROVIDERS: PCP Nurse Practitioner Family; Visit Provider Internal Medicine
DX: K76.89 Other specified diseases of liver (principal)
CPT/HCPCS: 74183; A9585

== ENCOUNTER 2024-11-27 09:42 | Outpatient (AMB) | payer OTHER, SELFPAY ==
--- NOTE | 2024-11-27 09:47 | A.OFFVIS_ITS ---
Intake Visit Reasons: 3M follow up/ MRI Intake Note: Patient presents to the office today for 3m follow up/MRI * Imagin11/19/24 Urology Meds:none Blood thinners:none Allergies No Known Allergies Allergy (Verified 11/27/24 10:04) Medication List - Last Reconciled 11/27/24 by CINDY Wu atorvastatin 20 mg PO BEDTIME 90 days HPI Comments Details: Herminio is a very pleasant 59-year-old male patient of Dr. Morris. He presents to the office today for follow-up. Of note, patient was seen approximately 3 months ago as a new patient for renal cysts at which time an MRI renal mass protocol was ordered for further assessment evaluation. These results were reviewed and communicated with the patient today. 12/01 multiple hepatic cysts. Bosniak type 1 cysts, right kidney, Bosniak type 2 cyst, left kidney. Recommend follow-up per radiology report. He reports upper left-sided abdominal discomfort he had been experiencing has since subsided over the last 2 months. We did discussed potential causes of renal cysts as well as classifications of renal cysts. All questions were answered. When asked he den ies any bothersome urinary issues. He denies urinary urgency, urinary frequency, incontinence, nocturia, hematuria, dysuria, foul smelling urine, changes to urinary stream, flank pain, fever, and or chills. He is happy with his current voiding parameters. In office urinalysis results reviewed with the patient today. Previously patient was noted to have microscopic hematuria however on urinalysis today no microscopic hematuria noted. Urine cytology 08/31 Negative for high-grade urothelial carcinoma. He denies any known workplace chemical exposure and or nicotine dependence. PSA 06/03 0.9. All questions were answered. He otherwise offers no other issues or concerns at this time. [facility] Surgical History Hx of colonoscopy Family History Father Hypertension Mother No problems noted. 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 Cognitive needs: No Hearing needs: No Vision needs: No Review of Systems Const All systems reviewed & are unremarkable except as noted in HPI and below Physical Exam Const General: cooperative, comfortable, no acute distress, well developed, alert and awake Orientation/consciousness: patient oriented x3 HEENT Head: Yes normal to inspection, Yes normocephalic and Yes atraumatic Ears: hearing grossly normal bilaterally Eyes General: appearance normal, both eyes and all related structures Neck Neck: Yes normal visual inspection and Yes trachea midline Chest Chest palpation & inspection: normal inspection of the chest Resp Effort & Inspection: normal respiratory effort and able to speak in complete sentences Cardio Rate: regular rate GI Inspection: Yes normal to inspection General: Yes no CVA tenderness Back/Spine/Pelvis Back: no CVA tenderness Skin General skin exam: no rashes or lesions noted Neuro General: patient oriented x3 Extrem General: Yes normal to inspection Psych Appearance: grossly normal and well kempt Mental Status: mental status grossly normal Speech and movement: Normal speech and movement present and Clear speech present Affect: normal affect Attitude: cooperative Thought process: Normal thought process present Thought content: Normal thought content present Insight: Fair insight present (Psych) Judgement: Fair judgement present (Psych) Results Reviewed Results Reviewed: Date of Service: 11/19/24 Procedure(s): MR abdomen wo/w con FINDINGS: Limited by patient's breathing/motion artifact. LUNG BASES: No enhancing lesion. LIVER, GALLBLADDER, AND BILIARY TREE: Liver measures 15 cm. There are multiple, less than 1 cm, well-defined, lobulated, hypointense T1 and hyperintense T2 nonenhancing no restricted diffusion lesions throughout the hepatic parenchyma, the largest in the anterior right hepatic lobe. The main portal veins, hepatic veins and intrahepatic portion of the IVC are patent. Gallbladder is contracted. No pericholecystic fluid collection or gallbladder wall thickening. No gross intraluminal signal abnormality. The common bile duct measures 5 mm. No intrahepatic biliary ductal dilatation. PANCREAS: No focal lesion. No peripancreatic fluid collection. No main pancreatic ductal dilatation. SPLEEN: 10 cm. No focal lesion. ADRENAL GLANDS: No nodular lesions. KIDNEYS AND URETERS: Right kidney: 5 mm, nonenhancing, fluid signal characteristic lesion centered in the corticomedullary junction upper pole midportion. No enhancing mass. Normal enhancement pattern throughout the renal parenchyma. No hydronephrosis. Left kidney: There is a 12 mm, ovoid shaped, nonenhancing, fluid signal characteristic lesion with a focal intrinsic hyperintense T1 signal centered at the corticomedullary junction lower pole. There is a 5 mm, well-defined, round and nonenhancing fluid signal characteristic lesion at the corticomedullary junction of the lower pole. Normal enhancement pattern throughout the renal parenchyma. No hydronephrosis. GASTROINTESTINAL TRACT: Abundant food contents in a prominent stomach likely recent meal. Gas and fluid within the small intestine. No intestinal dilatation. No ascites.. ABDOMINAL WALL: No gross umbilical hernia. LYMPH NODES: No retroperitoneal or mesenteric lymphadenopathy. VASCULAR: No aneurysm or dissection, abdominal aorta. OSSEOUS STRUCTURES: Mild multilevel thoracic and lumbar spondylosis. There is a cylindrical shaped CSF signal characteristic abnormality throughout the thoracic spinal cord extending from T9 to T12 L1. Questionable 1 mm hyperintense T2 signal within the conus medullaris. The conus medullaris ends at superior endplate of L1. IMPRESSION: Multiple hepatic cysts. Bosniak type I cyst, right kidney. Bosniak type II cyst, left kidney. Recommend follow-up. 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 Recommend dedicated IV contrast enhanced MRI of the entire spine Assessment & Plan Assessment & Plan (1) Microscopic hematuria: Code(s): R31.29 - Other microscopic hematuria Category: Medical (2) Renal cyst: Code(s): N28.1 - Cyst of kidney, acquired Category: Medical Plan Recent MRI results reviewed with the patient today; as noted above. We discussed classifications of renal cysts All questions were answered Will continue with surveillance monitoring. He currently denies any bothersome urinary issues or concerns. He reports be happy with current voiding parameters. Previous urine cytology results were reviewed. Will obtain renal ultrasound in 6 months. Follow-up in 6 months with imaging to be completed prior; or sooner with any issues, concerns, and or questions. Orders: Orders US renal BI 6 Months N28.1 - Cyst of kidney, acquired Patient Instructions: The patient had an opportunity to ask questions regarding the treatment plan. All questions were answered. Physical exam, labs, and imaging were discussed and reviewed in detail. As well as risks, benefits, and discussion of treatment choices. No major barriers to understanding were identified. The patient expressed understanding and agreement with the above treatment plan. The patient was made aware they should contact our office by phone for worsening of their current condition, the appearance of new symptoms, or with any questions or concerns. Compliance is encouraged with any medications and follow up testing that is ordered. It is a privilege to be allowed the opportunity to participate in? your urological care.? Again, if you have any questions or concerns If you have any questions or concerns please do not hesitate to contact me. The office is [phone]. This note is constructed using voice recognition software. While every effort has been made to ensure accuracy global risk management director errors may have been included. Yours sincerely, CINDY Wu Coding Level of Care Code Est Pt Level 3 (00528) Diagnoses Microscopic hematuria R31.29 Renal cyst N28.1
== END 2024-11-27 10:04 | disposition home or self-care (01) ==
LOC: HO.HUSH 09:43
PROVIDERS: PCP Nurse Practitioner Family; Visit Provider Nurse Practitioner Family
DX: R31.29 Other microscopic hematuria (principal); N28.1 Cyst of kidney, acquired; Z13.9 Encounter for screening, unspecified
CPT/HCPCS: 99213

== ENCOUNTER → 2024-11-27 09:42 | Outpatient (BNVA) | payer OTHER, SELFPAY | PROVIDERS: PCP Nurse Practitioner Family; Visit Provider Nurse Practitioner Family | DX: N28.1 Cyst of kidney, acquired (principal); R31.29 Other microscopic hematuria | CPT/HCPCS: 81003; 99212 ==

== ENCOUNTER → 2025-02-19 10:20 | Outpatient (BNV) | payer OTHER, SELFPAY | PROVIDERS: PCP Nurse Practitioner Family; Visit Provider Radiology Diagnostic Radiology | DX: G95.0 Syringomyelia and syringobulbia (principal) | CPT/HCPCS: 72156 ==

== ENCOUNTER 2025-02-19 10:25 | Outpatient (REF) | payer OTHER, SELFPAY ==
--- NOTE | ~2025-02-19 | MR_ITS ---
EXAMINATION: MR CERVICAL SPINE WITHOUT AND WITH CONTRAST CLINICAL INFORMATION: G 95.0. Syringomyelia and syringobulbia COMPARISON: No priors. TECHNIQUE: MRI of the cervical spine was obtained using routine sequences with and without contrast. Intravenous contrast: Gadolinium based (Gadavist) 5.0 mL. No reported immediate complications. FINDINGS: Craniocervical junction is intact. Normal position of the cerebellar tonsils. The cervical spinal cord caliber and signal is normal. No abnormal enhancement within the cervical spinal cord or the neural elements of the thecal sac. No bone marrow STIR signal abnormality. Multilevel marginal osteophyte formation and decreased intervertebral disc height and signal pronounced at C5-6 and to a lesser extent C4-5 and C6-7 level. Grade 1 retrolisthesis C6-7. Pronounced cervical lordosis apex at C4-5. There is biconcave volume loss of the vertebral bodies and the cervical spine pronounced at C5 and to a lesser extent C4 and C6. C2-3: No disc herniation. No neuroforamina stenosis. C3-4: Left-sided facet effusion. Facet joint hypertrophy bilaterally. Broad-based disc osteophyte compresses formation. No cord compression. C4-5: Broad-based disc osteophyte compresses formation. Facet joint hypertrophy. No central spinal canal stenosis. Right neuroforamina narrowing. C5-6: Broad-based disc osteophyte consummation. No cord compression. Right neuroforamina narrowing. C6-7: Broad-based disc osteophyte compresses formation. No cord compression. No neuroforamina stenosis. C7-T1: No cord compression or gross neuroforamina stenosis. No prevertebral compartment hematoma, mass or fluid collections. No abnormal enhancement in the prevertebral compartment. Flow-void signal within the main vessels is normal. Right vertebral artery slightly dominant. MR/MR cervical spine wo/w con IMPRESSION: No syrinx or hydrosyringomyelia. No abnormal enhancement, cervical spinal cord. Multilevel spondylosis C3 C7 resulting in grade 1 retrolisthesis C6-7. No disc herniation, cord compression or myelopathy. Electronically signed by: Dre Mayen MD 02/19/2025 11:25 AM [facility] [place]
== END 2025-02-19 10:26 | disposition home or self-care (01) ==
LOC: HO.MRI 10:25
PROVIDERS: PCP Nurse Practitioner Family; Visit Provider Nurse Practitioner Family
DX: G95.0 Syringomyelia and syringobulbia (principal)
CPT/HCPCS: 72156; A9585

== ENCOUNTER → 2025-02-21 12:48 | Outpatient (BNV) | payer OTHER, SELFPAY | PROVIDERS: PCP Nurse Practitioner Family; Visit Provider Radiology Vascular & Interventional Radiology | DX: G95.0 Syringomyelia and syringobulbia (principal) | CPT/HCPCS: 72157; 72158 ==

== ENCOUNTER 2025-02-21 12:49 | Outpatient (REF) | payer OTHER, SELFPAY ==
--- NOTE | ~2025-02-21 | MR_ITS ---
CLINICAL HISTORY: G95.0 - Syringomyelia and syringobulbia MR thoracic spine with and without gadolinium Comparison: None provided Findings: No fracture or pathologic bone lesion. Mild multilevel degenerative changes without significant central canal stenosis or neural foraminal narrowing. No abnormal postcontrast enhancement. There is a persistent central canal within the upper thoracic cord and a small syrinx within the lower thoracic cord. The syrinx spans T9-T12 and maximally measures 2.5 mm in diameter. There is no with associated mass lesion or abnormal enhancement. Paraspinous musculature intact. IMPRESSION: Small syrinx within the lower thoracic spinal cord without associated mass lesion or abnormal enhancement. This document has been electronically signed by: Jimi Renee MD on 02/24/2025 09:08:30
--- NOTE | ~2025-02-21 | MR_ITS ---
CLINICAL HISTORY: G95.0 - Syringomyelia and syringobulbia MR lumbar spine with and without gadolinium Comparison: None Findings: No scoliosis or spondylolisthesis. No acute fracture or pathologic bone lesion. Cauda equina and conus medullaris within normal limits. The conus terminates normally at L1. Portion of lower thoracic spinal cord syrinx visualized. No significant spinal canal or foraminal stenoses. No significant degenerative change. Paraspinous musculature intact. No abnormal enhancement. No significant central canal stenosis or neural foraminal narrowing. IMPRESSION: No acute findings. Portion of lower thoracic spinal cord syrinx visualized. No significant degenerative change no abnormal enhancement. This document has been electronically signed by: Jimi Renee MD on 02/24/2025 09:04:58
== END 2025-02-21 12:50 | disposition home or self-care (01) ==
LOC: HO.MRI 12:49
PROVIDERS: PCP Nurse Practitioner Family; Visit Provider Nurse Practitioner Family
DX: G95.0 Syringomyelia and syringobulbia (principal)
CPT/HCPCS: 72157; 72158; A9585

== ENCOUNTER 2025-03-20 09:21 | Outpatient (AMB) | payer OTHER, SELFPAY ==
--- NOTE | 2025-03-20 09:32 | A.SPINEOV_ITS ---
Vital Signs 03/20/25 09:33 Height 5 ft 6 in Weight 115 lb BMI 18.6 Intake Visit Reasons: syringomyelia Intake Note: Mr. Lozano is here today c/o shoulder pain on the left side that goes into the neck. MRI done at [facility] [place]. 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 HPI: This 59-year-old male underwent an MRI of his abdomen which led to MRIs of the whole spine due to the incidental finding of a syringomyelia in the thoracic spine. Patient denies any myelopathic symptoms. His main issue that he has intermittent pain that starts in the left side of his neck and radiates all the way down to his hand. The MRI of the cervical spine shows hyperlordosis of the cervical spine without nerve compression. I am wondering when he extends his ne ck that he narrows his foramen temporarily causing some irritation of his nerve root. On exam, there are no neurological deficits for motor sensation or reflexes. Gait is undisturbed. No pathological reflexes. In summary, this patient presents with a an incidental syringomyelia in the absence of scoliosis or Chiari malformation. There are no neurological deficits. No further workup is required. I discharged him from further follow- up. I spent 30 minutes in his consult reviewing imaging and discussing plan of care. Gregory Lucas MD, PhD Spine Fellowship Trained Neurosurgeon Director, [facility] Coding Level of Care Code New Pt Level 3 (41050) Diagnoses Hydrosyringomyelia G95.0
[2025-03-20 09:33] VITALS: BMI 18.6
== END 2025-03-20 11:24 | disposition home or self-care (01) ==
LOC: HO.HNS 09:22
PROVIDERS: PCP Nurse Practitioner Family; Referring Provider Nurse Practitioner Family; Visit Provider Neurological Surgery
DX: G95.0 Syringomyelia and syringobulbia (principal)
CPT/HCPCS: 99203

== ENCOUNTER → 2025-03-20 09:21 | Outpatient (BNVA) | payer OTHER, SELFPAY | PROVIDERS: PCP Nurse Practitioner Family; Referring Provider Nurse Practitioner Family; Visit Provider Neurological Surgery | DX: G95.0 Syringomyelia and syringobulbia (principal) | CPT/HCPCS: 99202 ==